=== PATIENT | female | born 1995 | race American Indian/Alaskan Native ===

== ENCOUNTER 2016-05-13 08:20 | Emergency (ER) | payer SELFPAY ==
[2016-05-13 08:34] VITALS: BP 133/80
[2016-05-13] MEDS ORDERED: TYLENOL PO ONE (11:02)
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
== END 2016-05-13 11:14 | disposition home or self-care (01) ==
LOC: ED 08:20
DX: R51 Headache (principal); M54.2 Cervicalgia; V89.2XXA Person injured in unspecified motor-vehicle accident, traffic, initial encounter; Y93.89 Activity, other specified; Y92.89 Other specified places as the place of occurrence of the external cause; Y99.8 Other external cause status
CPT/HCPCS: 99282